=== PATIENT | female | born 1940 | race Caucasian/White ===

== ENCOUNTER 2017-11-23 09:12 | Day surgery (SDC) | payer MEDICAID ==
[~2017-11-23] VITALS: Ht 142.2 cm; Wt 56.8 kg
[~2017-11-23 09:12] MED LIST: SODIUM CHLORIDE 0.9% 1,000 ML IV ONE
[2017-11-23] MEDS ORDERED: PROPOFOL 1% 20 ML VIAL IVP ONE (09:13)
[2017-11-23 09:53] LABS: GLUCOMETER DEV NAME(LOC) SDS 5; GLUCOSE,POINT OF CARE 185 MG/DL (70-110)
[2017-11-23] MEDS ORDERED: METF500T4 PO (09:53)
[2017-11-23] MEDS ORDERED: MEPERIDINE-PF 25 MG/ML SYRINGE IVP PRN (11:30)
[2017-11-23] MEDS ORDERED: FentaNYL CITRATE-PF 100 MCG/2 ML VIAL IVP PRN (11:30)
[2017-11-23] MEDS ORDERED: HYDROmorphone 2 MG/ML SYRINGE IVP PRN (11:30)
[2017-11-23] MEDS ORDERED: OXYGEN THERAPY IH SCH (20:00)
== END 2017-11-23 12:20 | disposition home or self-care (01) ==
LOC: SURGERY 09:12
PROVIDERS: ATTEND Internal Medicine Gastroenterology
DX: K29.70 Gastritis, unspecified, without bleeding (principal); K44.9 Diaphragmatic hernia without obstruction or gangrene; K21.0 Gastro-esophageal reflux disease with esophagitis; K22.2 Esophageal obstruction; I10 Essential (primary) hypertension; M81.0 Age-related osteoporosis without current pathological fracture; E78.00 Pure hypercholesterolemia, unspecified; E11.9 Type 2 diabetes mellitus without complications; Z98.890 Other specified postprocedural states; Z79.84 Long term (current) use of oral hypoglycemic drugs; Z87.19 Personal history of other diseases of the digestive system; Z86.718 Personal history of other venous thrombosis and embolism
CPT/HCPCS: 43239; 82962; 88305; 88312; C1769; J2704; J7030